=== PATIENT | female | born 1960 | race Two or more races ===

== ENCOUNTER 2018-08-30 20:06 | Emergency (ER) | payer SELFPAY ==
[~2018-08-30] VITALS: Ht 157.5 cm; Wt 93.7 kg
[2018-08-30] MEDS ORDERED: SODIUM CHLORIDE FLUSH 10ML SYR IVF ONE (20:30)
[2018-08-30] MEDS ORDERED: PREG300C PO (20:59)
[2018-08-30] MEDS ORDERED: SENN8.6T64 PO (20:59)
[2018-08-30] MEDS ORDERED: ADAL40KI INJ (20:59)
[2018-08-30] MEDS ORDERED: HYDR-3245 PO (20:59)
[2018-08-30] MEDS ORDERED: MECL25TA4 PO (20:59)
[2018-08-30] MEDS ORDERED: SIMV20TA3 PO (20:59)
[2018-08-30] MEDS ORDERED: IBUP-1223 PO (20:59)
[2018-08-30] MEDS ORDERED: DIPH25CA61 PO (20:59)
[2018-08-30] MEDS ORDERED: CETI10CA PO (20:59)
[2018-08-30] MEDS ORDERED: METF500T17 PO (20:59)
[2018-08-30] MEDS ORDERED: INSU100C SQ-INSULIN (20:59)
[2018-08-30] MEDS ORDERED: INSU100V8 SQ (20:59)
[2018-08-30] MEDS ORDERED: MORP30TA81 PO (20:59)
[2018-08-30] MEDS ORDERED: LEVO200T5 PO (20:59)
[2018-08-30] MEDS ORDERED: CHOL5000 PO (20:59)
[2018-08-30] MEDS ORDERED: SODIUM CHLORIDE 0.9% 1,000ML IVBOLUS ONE (21:00)
[2018-08-30 21:10] LABS: BASOPHILS % (AUTO) 0 % (0-1); EOSINOPHILS # (AUTO) 0.23 x10^3/uL (0-0.4); EOSINOPHILS % (AUTO) 1 % (1-7); LYMPHOCYTES % (AUTO) 8 % (22-44); MD NO; MEAN CORPUSCULAR HEMOGLOBIN 28.5 pg (27.0-34.8); MEAN CORPUSCULAR HGB CONC 32.9 g/dL (32.4-35.8); MEAN CORPUSCULAR VOLUME 86.8 fL (80-100); MEAN PLATELET VOLUME 8.9 fL (7.4-10.4); MONOCYTES # (AUTO) 0.77 x10^3/uL (0.2-0.8); MONOCYTES % (AUTO) 5 % (2-9); NEUTROPHILS # (AUTO) 13.66 x10^3/uL (1.8-6.8); NEUTROPHILS % (AUTO) 86 % (42-75); PLATELET COUNT 160 x10^3/uL (130-400); RED BLOOD COUNT 4.96 x10^6/uL (3.82-5.3)
[2018-08-30 21:19] LABS: ALBUMIN 4.3 g/dL (3.4-5.0); ANION GAP 6 mmol/L (5-15); CALCIUM 9.6 mg/dL (8.5-10.1); CHLORIDE 99 mmol/L (98-107)
[2018-08-30 21:22] LABS: ALANINE AMINOTRANSFERASE 38 U/L (12-78); ALKALINE PHOSPHATASE 101 U/L (45-117); BILIRUBIN,TOTAL 0.4 mg/dL (0.2-1.0); CREATININE 0.96 mg/dL (0.55-1.02); TOTAL PROTEIN 8.3 g/dL (6.4-8.2)
--- NOTE | 2018-08-30 21:33 | NUR ---
PT IN HOSPITAL GOWN. PT ON 6L O2 PER N/C. PT SITTING ON EDGE OF BED, STATED IT IS MORE COMFORTABLE THIS WAY. PT MADE AWARE THAT SHE'LL NEED TO LAY IN BED WITH RAILS UP IF BEING TRANSPORTED. PT STATED THAT IS FINE, SHE CAN MOVE IF NEED TO. IV STARTED. ORDERED FLUIDS INFUSING. PT FAMILY AT BEDSIDE. CALL LIGHT WITHIN REACH. PT ON CARDIAC AND VITALS MONITORS. LABS AND BLOOD CX HAVE BEEN DRAWN. WILL COTINUE TO MONITOR.
--- NOTE | 2018-08-30 21:35 | NUR ---
ASKED PT WHICH ARM IS BEST FOR IV PLACEMENT, PT STATED LEFT ARM OR RIGHT HAND. ABLE TO GET IV IN LEFT FOREARM, INFORMED PT IV IN FOREARM IS BETTER ENCASE IMAGING WITH CONTRACT IS ORDERED. ORDERED FLUIDS INFUSING. PT DOZING OFF AN ON DURING IV INSERTION. PT REMAINS SITTING ON EDGE OF GURNEY. PT AWARE SHE IS A FALL RISK LIKE THIS. PT STATED SHE CAN'T LAY IN THE GURNEY DUE TO HER BACK.
--- NOTE | 2018-08-30 21:50 | NUR ---
PT REQUESTING PAIN MEDS BEFORE CT, STATED SHE CAN'T LAY FLAT IF SHE DOESN'T GET A BUNCH OF PAIN MEDS. ERP MADE AWARE. WILL CONTINUE TO MONITOR.
[2018-08-30] MEDS ORDERED: CEFTRIAXONE PMX 1GM/50ML 50 ML ONE (21:55)
--- NOTE | 2018-08-30 21:55 | NUR ---
HAD BEEN ASKING PT IF SHE GAVE A URINE SAMPLE. PT STATED SHE HANDED IT TO SOMEBODY, COULDN'T SAY WHO. THIS RN FOUND PT URINE IN BATHROOM ON HAND RAIL. ASKED PT IF IT WAS HER URINE. PT STATED YES. PT ASKED ABOUT HER PAIN MEDS, INFORMED PT THE ERP IS AWARE AND IS WORKING ON IT. PT STATED, "THAT'S BULLSHIT, I DON'T WANT TO HEAR THAT." PT REASSURED ERP IS PLACING ORDERS. PT SON WHEELING HER TO THE BATHROOM. PT HAD REMOVED ALL MONITORS AND REMOVED IV FLUIDS TUBING. ABX IN ROOM READY TO BE INFUSED.
[2018-08-30] MEDS ORDERED: HYDROmorphone 2 MG/ML, 1ML IVPush PRN (22:00)
[2018-08-30] MEDS ORDERED: CEFTRIAXONE PMX 1GM/50ML 50 ML IVPB ONE (22:00)
[2018-08-30] MEDS ORDERED: ONDANSETRON 2MG/ML, 2ML IVPush ONE (22:00)
[2018-08-30 22:08] VITALS: BP 137/73
--- NOTE | 2018-08-30 22:08 | NUR ---
UPON GOING BACK TO PT ROOM TO CONNECT FLUIDS AND ABX, PT IN STREET CLOTHES AND WAS BEING WHEELED OUT OF ROOM BY SON. PT STILL HAD IV. ASKED PT IF SHE IS TRYING TO LEAVE, PT STATED, "YES, I'M GETTING OUT OF HERE." INFORMED PT SHE CAN'T LEAVE WITH IV. PT STATED, "OH YES I CAN, GET OUT OF MY WAY". SECURITY CALLED. PT STATED, "FINE". PT REMOVED IV HERSELF AND THREW IT ON THE FLOOR. PT THEN STANDING UP TRYING TO FORCE DISCHARGE DOOR OPEN, PT YELLING TO HAVE THE DOOR OPENED. IV PICKED UP, WAS REMOVED INTACT AND DISPOSED OF. PT SON WHEELED PT OUT.
[2018-08-30 22:20] LABS: CULTURE INDICATED? YES; MICROSCOPIC INDICATED
== END 2018-08-30 22:09 | disposition left against medical advice (07) ==
LOC: ED 22:00
DX: T81.30XA Disruption of wound, unspecified, initial encounter (principal); G89.29 Other chronic pain; M54.5 Low back pain; L76.82 Other postprocedural complications of skin and subcutaneous tissue; E11.9 Type 2 diabetes mellitus without complications
CPT/HCPCS: 36415; 80053; 81001; 83605; 84145; 85025; 87040; 87086; 93005; 99284; J7030